=== PATIENT | male | born 1990 | race Two or more races ===

== ENCOUNTER → 2016-12-05 | Outpatient (CLI) | payer OTHER ==
--- NOTE | 2016-12-05 17:00 | XR ---
Right knee HISTORY: Trauma and pain 3 views of the right knee Bone mineralization, joint spaces and alignment are maintained. There is no joint effusion. Question some slight lateral deviation patella. IMPRESSION: No fracture or dislocation evident. Question some mild patellar lateral subluxation, inez elate.
--- NOTE | 2016-12-05 17:02 | XR ---
Left foot HISTORY: Trauma and pain 3 views of the left foot No comparisons Bone mineralization, joint spaces and alignment are maintained. Postop change noted to the lower leg incidentally. There is soft tissue swelling. IMPRESSION: No fracture or dislocation.
--- NOTE | 2016-12-05 17:03 | XR ---
Lumbar spine HISTORY: Trauma and pain 3 views of the lumbar spine Bone mineralization is maintained. Lumbar vertebral bodies show preserved height, alignment, and ther e is no paraspinal mass. IMPRESSION: No acute fracture or subluxation.
--- NOTE | 2016-12-05 17:08 | XR ---
EXAMINATION TYPE: XR ankle complete LT DATE OF EXAM: 12/05/2016 COMPARISON: NONE HISTORY: Generalized left ankle pain after slip and fall. History of left ankle surgery in 2011. TECHNIQUE: 3 views of the left ankle were obtained. FINDINGS: A lateral fixation plate with 9 cortical medullary fixation screws fixate a prior fibular f racture. There is appropriate cortical bridging of the prior fracture with no new acute fracture. No fracture is also appreciated of the hardware or evidence of hardware loosening. 2 cortical medullary fixation screws fixate the medial malleolus and tibial metaphysis. Heterotopic ossification versus an osteochondroma extend into the syndesmosis from the lateral tibial metaphysis. Ankle mortise is congruent and maintains normal anatomic alignment. No evidence of radiographic osteo chondral defect. Minimal tibial plateau sclerosis is noted. No acute fracture or dislocation. There i s mild medial malleolus are swelling. No evidence of joint effusion. Bone mineralization is unremarka ble. IMPRESSION: 1. No evidence of acute fracture or dislocation. 2. No evidence of hardware fracture or loosening. 3. 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
== END | disposition home or self-care (01) ==
LOC: RADXRMAIN 16:18
PROVIDERS: ATTEND Emergency Medicine
DX: S93.402A Sprain of unspecified ligament of left ankle, initial encounter (principal); S80.01XA Contusion of right knee, initial encounter; S30.0XXA Contusion of lower back and pelvis, initial encounter; S93.602A Unspecified sprain of left foot, initial encounter; R93.7 Abnormal findings on diagnostic imaging of other parts of musculoskeletal system; W01.0XXA Fall on same level from slipping, tripping and stumbling without subsequent striking against object, initial encounter
CPT/HCPCS: 72100

== ENCOUNTER → 2017-09-18 | Outpatient (CLI) | payer BC ==
--- NOTE | 2017-09-18 21:26 | MR ---
EXAMINATION TYPE: MR lumbar spine wo con DATE OF EXAM: 09/18/2017 COMPARISON: NONE HISTORY: Memory loss, dizziness, Dementia with behavioral disturbance CONTRAST: 0 mL intravenous Gadavist. TECHNIQUE: Multiplanar, multisequence images of the lumbar spine were acquired. FINDINGS: L5-S1: Central focal disc herniation is present. This has some mild extension beyond the S1 endplate. No thecal sac contact is evident. No exiting nerve root contact is evident. No spinal canal stenosis or neural foraminal stenosis is present. L4-L5: No significant disc bulge or disc herniation. No spinal canal stenosis. No foraminal stenosi s. L3-L4: No significant disc bulge or disc herniation. No spinal canal stenosis. No foraminal stenosi s. L2-L3: No significant disc bulge or disc herniation. No spinal canal stenosis. No foraminal stenosi s. L1-L2: No significant disc bulge or disc herniation. No spinal canal stenosis. No foraminal stenosi s. T12-L1: No significant disc bulge or disc herniation. No spinal canal stenosis. No foraminal stenos is. IMPRESSION: 1. Small central disc herniation L5-S1 without thecal sac or nerve root contact.
== END | disposition home or self-care (01) ==
LOC: RADMRIMAIN 14:59
PROVIDERS: ATTEND Family Medicine
DX: M51.27 Other intervertebral disc displacement, lumbosacral region (principal)
CPT/HCPCS: 72148

== ENCOUNTER → 2019-08-27 | Outpatient (CLI) | payer BC ==
[2019-08-27 08:24] LABS: Basophils % (A) 1 %; Eosinophils # (A) 0.2 k/uL (0-0.7); Eosinophils % (A) 4 %; HCT 49.5 % (39.0-53.0); HGB 16.7 gm/dL (13.0-17.5); Lymphocytes # (A) 1.9 k/uL (1.0-4.8); Lymphocytes % (A) 35 %; MCH 28.5 pg (25.0-35.0); MCHC 33.7 g/dL (31.0-37.0); MCV 84.6 fL (80.0-100.0); Mean Platelet Volume 9.8; Monocytes # (A) 0.3 k/uL (0-1.0); Monocytes % (A) 6 %; Neutrophils # (A) 2.7 k/uL (1.3-7.7); Neutrophils % (A) 51 %; Platelet Count 211 k/uL (150-450); RBC 5.85 m/uL (4.30-5.90); WBC 5.3 k/uL (3.8-10.6)
[2019-08-27 10:33] LABS: African American GFR (CKD) 116.5 (60.0-200.0); Albumin 4.9 g/dL (3.80-4.90); Albumin/Globulin Ratio 2.72 (1.60-3.17); Anion Gap 6.9 mmol/L (4.00-12.00); Calcium 9.6 mg/dL (8.7-10.3); Carbon Dioxide 27.1 mmol/L (21.6-31.8); Chol/HDL Ratio 4.3; Globulin 1.8 g/dL (1.6-3.3); Non-African American GFR(CKD) 100.5 (60.0-200.0); Potassium 4.1 mmol/L (3.5-5.5); Total Bilirubin 0.7 mg/dL (0.3-1.2); Total Protein 6.7 g/dL (6.2-8.2)
[2019-08-27 15:08] LABS: Hemoglobin A1C 4.8 % (4.0-6.0)
== END | disposition home or self-care (01) ==
LOC: LABWHC1 07:31
PROVIDERS: ATTEND Family Medicine
DX: Z00.00 Encounter for general adult medical examination without abnormal findings (principal); R68.82 Decreased libido
CPT/HCPCS: 36415; 80053; 80061; 82306; 82672; 83036; 84402; 84403; 84443; 85025

== ENCOUNTER → 2020-03-21 | Outpatient (CLI) | payer BC ==
[2020-03-21 20:09] LABS: Prostate Specific Antigen 1.5 ng/mL (0.0-2.5)
== END | disposition home or self-care (01) ==
LOC: LABWHC1 14:27
PROVIDERS: ATTEND Family Medicine
DX: E23.0 Hypopituitarism (principal)
CPT/HCPCS: 36415; 82672; 84153; 84402; 84403

== ENCOUNTER → 2020-06-19 | Outpatient (CLI) | payer BC ==
[2020-06-19 21:20] LABS: Prostate Specific Antigen 1.4 ng/mL (0.0-2.5)
== END | disposition home or self-care (01) ==
LOC: LABWHC1 12:20
PROVIDERS: ATTEND Family Medicine
DX: E23.0 Hypopituitarism (principal)
CPT/HCPCS: 36415; 82672; 84153; 84402; 84403

== ENCOUNTER → 2020-09-21 | Outpatient (CLI) | payer BC ==
[2020-09-24 21:18] LABS: Albumin, LC/MS/MS 4.5 g/dL (3.6-5.1); Testosterone, Free, LC/MS/MS 75.8 pg/mL (46.0-224.0)
== END | disposition home or self-care (01) ==
LOC: LABWHC1 14:51
PROVIDERS: ATTEND Family Medicine
DX: E23.0 Hypopituitarism (principal)
CPT/HCPCS: 36415; 82040; 84270; 84403

== ENCOUNTER → 2020-09-29 | Outpatient (CLI) | payer BC ==
[2020-09-29 20:22] LABS: African American GFR (CKD) 103.1 (60.0-200.0); Albumin 4.6 g/dL (3.80-4.90); Albumin/Globulin Ratio 2.3 (1.60-3.17); Anion Gap 8.8 mmol/L (4.00-12.00); BUN/Creat Ratio 15.45 Ratio (12.00-20.00); Calcium 9.7 mg/dL (8.7-10.3); Carbon Dioxide 26.2 mmol/L (21.6-31.8); Chol/HDL Ratio 3.86; LDL Cholesterol,Calculated 84.8 mg/dL (0.0-131.0); PSA Annual Screen 1.5 ng/mL (0.0-4.0); Potassium 4.3 mmol/L (3.5-5.5); Total Bilirubin 0.6 mg/dL (0.3-1.2); Total Protein 6.6 g/dL (6.2-8.2); VLDL Calculation 18.2 mg/dL (5.00-40.00)
[2020-09-29 20:45] LABS: Basophils # (A) 0.02 X 10*3/uL (0.00-0.10); Basophils % (A) 0.4 %; Eosinophils # (A) 0.12 X 10*3/uL (0.04-0.35); Eosinophils % (A) 2.5 %; HCT 48.3 % (39.6-50.0); HGB 15.7 g/dL (13.0-17.0); Lymphocytes # (A) 2.18 X 10*3/uL (0.90-5.00); Lymphocytes % (A) 45.6 %; MCH 27.9 pg (27.0-32.0); MCHC 32.5 g/dL (32.0-37.0); MCV 85.9 fL (80.0-97.0); Mean Platelet Volume 12.1 fL (9.5-12.2); Monocytes # (A) 0.45 X 10*3/uL (0.20-1.00); Monocytes % (A) 9.4 %; Neutrophils % (A) 41.9 %; Platelet Count 203 X 10*3/uL (140-440); RBC 5.62 X 10*6/uL (4.40-5.60); RDW 12.4 % (11.5-14.5); WBC 4.78 X 10*3/uL (4.50-10.00)
[2020-09-29 22:29] LABS: Hemoglobin A1C 4.5 % (4.0-6.0)
== END | disposition home or self-care (01) ==
LOC: LABWHC1 11:30
PROVIDERS: ATTEND Family Medicine
DX: Z12.5 Encounter for screening for malignant neoplasm of prostate (principal); Z13.220 Encounter for screening for lipoid disorders; Z13.1 Encounter for screening for diabetes mellitus; E23.0 Hypopituitarism; R94.7 Abnormal results of other endocrine function studies
CPT/HCPCS: 80061; 80053; 82672; 85025; 83036; 36415; G0103

== ENCOUNTER → 2021-01-09 | Outpatient (CLI) | payer BC | END | disposition home or self-care (01) | DX: E23.0 Hypopituitarism (principal) | CPT/HCPCS: 36415; 82672; 84402; 84403 ==

== ENCOUNTER → 2021-04-26 | Outpatient (CLI) | payer BC | END | disposition home or self-care (01) | LOC: LABWHC1 15:15 | PROVIDERS: ATTEND Family Medicine | DX: E29.1 Testicular hypofunction (principal) | CPT/HCPCS: 36415; 82672; 84270; 84402; 84403 ==

== ENCOUNTER → 2021-10-22 | Outpatient (CLI) | payer BC | END | disposition home or self-care (01) | LOC: LABWHC1 15:24 | PROVIDERS: ATTEND Family Medicine | DX: E23.0 Hypopituitarism (principal) | CPT/HCPCS: 36415; 82672; 84270; 84402; 84403 ==

== ENCOUNTER → 2022-01-16 | Outpatient (CLI) | payer BC ==
[2022-01-17 17:59] LABS: Estrogens Total 39 pg/mL
== END | disposition home or self-care (01) ==
LOC: LABWHC1 09:01
PROVIDERS: ATTEND Family Medicine
DX: E23.0 Hypopituitarism (principal)
CPT/HCPCS: 36415; 82040; 82672; 84270; 84403

== ENCOUNTER → 2022-04-25 | Outpatient (CLI) | payer BC | END | disposition home or self-care (01) | LOC: LABWHC1 15:08 | PROVIDERS: ATTEND Family Medicine | DX: E23.0 Hypopituitarism (principal) | CPT/HCPCS: 36415; 82672; 84402; 84403 ==

== ENCOUNTER → 2024-07-01 | Outpatient (CLI) | payer BC ==
--- NOTE | 2024-07-01 15:46 | MR ---
INDICATION: Patient age:Male; 33 years old; Reason for study: R42 DIZZINESS AND GIDDINESS; PHH. COMPARISON: None. TECHNIQUE: Multi planar, multi sequence imaging was performed through the brain without administratio n of intravenous contrast. FINDINGS: The castro-white junctions, ventricular system, basal cisterns appear unremarkable. Diffusion-weighted imaging shows no evidence of restricted diffusion to suggest acute/subacute infarct. Intracranial art erial flow voids are maintained. Midline structures show no abnormality. No FLAIR signal abnormalitie s.. The susceptibility weighted images do not reveal any evidence for micro-hemorrhage. The bone marrow signal is within normal limits. The globes are unremarkable. Mucosal thickening of t he bilateral maxillary sinuses. Mucous retention cyst within the right maxillary sinus measuring up t o 0.9 cm. IMPRESSION: No evidence of intracranial mass or acute/subacute infarct. [facility], , 07/01/2024 3:44 PM
== END | disposition home or self-care (01) ==
LOC: RADMRIMAIN 14:28
PROVIDERS: ATTEND Internal Medicine
DX: R42 Dizziness and giddiness (principal)
CPT/HCPCS: 70551